=== PATIENT | female | born 1940 | race Caucasian/White ===

== ENCOUNTER 2020-10-05 12:28 | Emergency (ER) | payer MEDICARE ==
[2020-10-05 13:59] LABS: HEMOGLOBIN 14.8 gm/dl (12.3-15.3); RED BLOOD COUNT 5.08 M/UL (4.00-5.10); WHITE BLOOD COUNT 7.3 K/UL (4.5-11.0)
[2020-10-05 14:14] LABS: BUN/CREATININE RATIO 24 (0-10)
[2020-10-05] MEDS ORDERED: OMNICEF 300 MG300 MG PO (17:50)
== END 2020-10-05 18:05 | disposition home or self-care (01) ==
LOC: ER1 12:28
DX: N39.0 Urinary tract infection, site not specified (principal); R41.82 Altered mental status, unspecified; E11.65 Type 2 diabetes mellitus with hyperglycemia
CPT/HCPCS: 36415; 70450; 80053; 81001; 82962; 85025; 87086; 96374; 99284; J0696

== ENCOUNTER 2020-10-30 20:44 | Observation (INO) | payer MEDICARE ==
[~2020-10-30] VITALS: Ht 165.1 cm; Wt 62.1 kg
[~2020-10-30 20:44] MED LIST: OMNICEF 300 MG300 MG PO
[2020-10-30 21:36] LABS: HEMOGLOBIN 13.5 gm/dl (12.3-15.3); RED BLOOD COUNT 4.54 M/UL (4.00-5.10); WHITE BLOOD COUNT 7.6 K/UL (4.5-11.0)
[2020-10-30 21:46] LABS: BUN/CREATININE RATIO 12 (0-10)
[2020-10-31] MEDS ORDERED: LISINOPRIL-HCT1 EAC1 PO (03:02)
[2020-10-31] MEDS ORDERED: GLYBURIDE-METF1 EAC1 PO (03:02)
[2020-10-31] MEDS ORDERED: CELEXA 20MG TAB20 MG PO (03:03)
[2020-10-31] MEDS ORDERED: ZETIA10 MG PO (03:03)
[2020-10-31] MEDS ORDERED: PIOGLITAZONE HC30 MG PO (03:04)
[2020-10-31] MEDS ORDERED: PROTONIX 40 MG40 M1 PO (03:04)
[2020-10-31 04:51] LABS: BUN/CREATININE RATIO 13 (0-10)
[2020-10-31] MEDS ORDERED: METFORMIN HCL500 M2 PO (17:32)
== END 2020-10-31 18:16 | disposition home or self-care (01) ==
LOC: ER1 20:44 → MED SURG 4 23:25 → CDU 23:25 → MED SURG 4 10-31 02:15
PROVIDERS: Emergency Medicine; ADMIT Internal Medicine
DX: E16.2 Hypoglycemia, unspecified (principal); E11.9 Type 2 diabetes mellitus without complications; E87.6 Hypokalemia; I10 Essential (primary) hypertension; F03.90 Unspecified dementia, unspecified severity, without behavioral disturbance, psychotic disturbance, mood disturbance, and anxiety; N30.00 Acute cystitis without hematuria; E78.5 Hyperlipidemia, unspecified; Z79.84 Long term (current) use of oral hypoglycemic drugs; Z79.899 Other long term (current) drug therapy; Z98.51 Tubal ligation status; Z82.49 Family history of ischemic heart disease and other diseases of the circulatory system
CPT/HCPCS: 36415; 70450; 71045; 80048; 80053; 80307; 81001; 82550; 82553; 82962; 84132; 84484; 85025; 85610; 85730; 87086; 93005; 96374; 99285; G0378; J3480; J7070

== ENCOUNTER 2021-05-28 11:34 | Emergency (ER) | payer MEDICARE ==
[~2021-05-28 11:34] MED LIST changes: +CELEXA 20MG TAB20 MG PO; +GLYBURIDE-METF1 EAC1 PO; +LISINOPRIL-HCT1 EAC1 PO; +METFORMIN HCL500 M2 PO; +PIOGLITAZONE HC30 MG PO; +PROTONIX 40 MG40 M1 PO; +ZETIA10 MG PO
[2021-05-28 12:35] LABS: HEMOGLOBIN 15.1 gm/dl (12.3-15.3); RED BLOOD COUNT 5.11 M/UL (4.00-5.10); WHITE BLOOD COUNT 4.5 K/UL (4.5-11.0)
== END 2021-05-28 16:00 | disposition home or self-care (01) ==
LOC: ER1 11:34
PROVIDERS: Physician Assistant
DX: Z23 Encounter for immunization (principal); U07.1 COVID-19; J12.82 Pneumonia due to coronavirus disease 2019; J44.9 Chronic obstructive pulmonary disease, unspecified; E11.9 Type 2 diabetes mellitus without complications; I10 Essential (primary) hypertension
CPT/HCPCS: 71045; 80053; 85025; 99283; M0243

== ENCOUNTER 2022-01-17 16:05 | Inpatient (IN) | payer MEDICARE, MEDICAID ==
[~2022-01-17] VITALS: Ht 165.1 cm; Wt 52.6 kg
[2022-01-17 17:16] LABS: HEMOGLOBIN 12.5 gm/dl (12.3-15.3); RED BLOOD COUNT 3.96 M/UL (4.00-5.10); WHITE BLOOD COUNT 8.7 K/UL (4.5-11.0)
[2022-01-17 17:40] LABS: BUN/CREATININE RATIO 22 (0-10)
[2022-01-18 08:19] LABS: HEMOGLOBIN 11.6 gm/dl (12.3-15.3); RED BLOOD COUNT 3.66 M/UL (4.00-5.10); WHITE BLOOD COUNT 7.8 K/UL (4.5-11.0)
[2022-01-18 08:40] LABS: BUN/CREATININE RATIO 16 (0-10)
[2022-01-18] MEDS ORDERED: LISINOPRIL5 MG PO (10:28)
[2022-01-18] MEDS ORDERED: LIPITOR20 MG PO (10:28)
[2022-01-18] MEDS ORDERED: ARICEPT5 MG PO (10:29)
[2022-01-18] MEDS ORDERED: SEROQUEL50 MG PO (10:30)
[2022-01-18] MEDS ORDERED: RISPERDAL0.5 MG PO (10:31)
[2022-01-19 05:36] LABS: RED BLOOD COUNT 3.8 M/UL (4.00-5.10)
[2022-01-19 05:42] LABS: BUN/CREATININE RATIO 13 (0-10)
[2022-01-20 06:40] LABS: HEMOGLOBIN 12.5 gm/dl (12.3-15.3); WHITE BLOOD COUNT 7.1 K/UL (4.5-11.0)
[2022-01-20 07:17] LABS: BUN/CREATININE RATIO 14 (0-10)
--- NOTE | 2022-01-20 16:41 | NUR ---
SPOKE WITH PATIENTS SON GABRIEL AT THIS TIME AND HE STATES THAT THE PATIENT IS A DNR.
[2022-01-21 06:23] LABS: HEMOGLOBIN 11.9 gm/dl (12.3-15.3); RED BLOOD COUNT 3.84 M/UL (4.00-5.10); WHITE BLOOD COUNT 7.9 K/UL (4.5-11.0)
[2022-01-21 06:58] LABS: BUN/CREATININE RATIO 16 (0-10)
[2022-01-22 03:30] LABS: HEMOGLOBIN 11.1 gm/dl (12.3-15.3); RED BLOOD COUNT 3.55 M/UL (4.00-5.10); WHITE BLOOD COUNT 7.4 K/UL (4.5-11.0)
[2022-01-22 03:47] LABS: BUN/CREATININE RATIO 12 (0-10)
[2022-01-23 05:19] LABS: BUN/CREATININE RATIO 22 (0-10)
[2022-01-24 03:04] LABS: HEMOGLOBIN 11.9 gm/dl (12.3-15.3); RED BLOOD COUNT 3.83 M/UL (4.00-5.10); WHITE BLOOD COUNT 6.4 K/UL (4.5-11.0)
[2022-01-24 03:33] LABS: BUN/CREATININE RATIO 23 (0-10)
[2022-01-25 04:32] LABS: BUN/CREATININE RATIO 15 (0-10)
[2022-01-27 06:15] LABS: HEMOGLOBIN 11.4 gm/dl (12.3-15.3); RED BLOOD COUNT 3.64 M/UL (4.00-5.10); WHITE BLOOD COUNT 6.5 K/UL (4.5-11.0)
[2022-01-27 06:45] LABS: BUN/CREATININE RATIO 19 (0-10)
[2022-01-28 05:16] LABS: BUN/CREATININE RATIO 23 (0-10)
[2022-01-29 06:38] LABS: HEMOGLOBIN 11.5 gm/dl (12.3-15.3); RED BLOOD COUNT 3.71 M/UL (4.00-5.10); WHITE BLOOD COUNT 7.3 K/UL (4.5-11.0)
[2022-01-29 07:27] LABS: BUN/CREATININE RATIO 18 (0-10)
[2022-01-30 04:33] LABS: BUN/CREATININE RATIO 25 (0-10)
[2022-01-31 04:33] LABS: BUN/CREATININE RATIO 29 (0-10)
[2022-02-01 04:03] LABS: HEMOGLOBIN 10.5 gm/dl (12.3-15.3); RED BLOOD COUNT 3.38 M/UL (4.00-5.10); WHITE BLOOD COUNT 10.2 K/UL (4.5-11.0)
[2022-02-01 04:19] LABS: BUN/CREATININE RATIO 20 (0-10)
[2022-02-01] MEDS ORDERED: RISPERDAL0.5 MG PO (10:31)
[2022-02-01] MEDS ORDERED: LANTUS INS100 UTS/M1 SC (10:31)
[2022-02-01] MEDS ORDERED: HYDROCODON-ACE1 EAC4 PO (10:31)
[2022-02-01] MEDS ORDERED: SEROQUEL50 MG PO (10:31)
--- NOTE | 2022-02-01 13:58 | NUR ---
CALLED [facility]ANGED TRANSPORTATION AT 13:24. CALLED REPORT TO [facility] WITH BRYSON MCKEON RN AT 1400. [facility].
== END 2022-02-02 03:52 | disposition other institution (70) | DRG 981 ==
LOC: ER1 16:05 → CDU 19:39 → MED SURG 4 19:39
PROVIDERS: Emergency Medicine; Internal Medicine; Surgery; ADMIT Family Medicine
PROC: 0KBN0ZZ Excision of Right Hip Muscle, Open Approach (ICD-10-PCS; 2022-01-19)
PROC: XW023S6 Introduction of COVID-19 Vaccine Dose 1 into Muscle, Percutaneous Approach, New Technology Group 6 (ICD-10-PCS; principal; 2022-01-19 10:30)
DX: E11.52 Type 2 diabetes mellitus with diabetic peripheral angiopathy with gangrene (principal); L89.153 Pressure ulcer of sacral region, stage 3; I96 Gangrene, not elsewhere classified; N30.00 Acute cystitis without hematuria; L03.317 Cellulitis of buttock; I25.10 Atherosclerotic heart disease of native coronary artery without angina pectoris; F17.200 Nicotine dependence, unspecified, uncomplicated; F32.A Depression, unspecified; E11.319 Type 2 diabetes mellitus with unspecified diabetic retinopathy without macular edema; H54.8 Legal blindness, as defined in USA; E11.40 Type 2 diabetes mellitus with diabetic neuropathy, unspecified; Z66 Do not resuscitate; F01.50 Vascular dementia, unspecified severity, without behavioral disturbance, psychotic disturbance, mood disturbance, and anxiety; Z74.01 Bed confinement status; Z91.14 Patient's other noncompliance with medication regimen; B95.62 Methicillin resistant Staphylococcus aureus infection as the cause of diseases classified elsewhere; N18.9 Chronic kidney disease, unspecified; I12.9 Hypertensive chronic kidney disease with stage 1 through stage 4 chronic kidney disease, or unspecified chronic kidney disease; E11.22 Type 2 diabetes mellitus with diabetic chronic kidney disease; E87.6 Hypokalemia; E78.00 Pure hypercholesterolemia, unspecified; E78.5 Hyperlipidemia, unspecified; B95.2 Enterococcus as the cause of diseases classified elsewhere; B96.89 Other specified bacterial agents as the cause of diseases classified elsewhere
CPT/HCPCS: 36415; 72192; 80048; 80053; 80202; 81001; 82550; 82553; 82962; 84132; 84484; 85025; 85027; 86140; 87070; 87077; 87186; 87205; 91301; 93005; 96374; 96375; 97110; 97162; 97166; 97530; 97530-GP-CQ; 99285; A6212; J0696; J0713; J1650; J2001; J2250; J2543; J2704; J3010; J3370; J7030; J7050; J7070; J7120; U0002